=== PATIENT | female | born 1970 | race Caucasian/White ===

== ENCOUNTER 2016-09-28 10:06 | Emergency (ER) | payer MEDICAID, OTHER ==
[2016-09-28 10:06] VITALS: BMI 29.9
[2016-09-28 10:27] VITALS: BP 149/86; PULSE 109; RESP 18; TEMP 98.5; O2SAT 99
[2016-09-28 12:06] LABS: RBC URINE 18 /hpf (0-3); URINE BACTERIA FEW (<OCC); URINE BILIRUBIN NEGATIVE (NEGATIVE); URINE BLOOD 2+ (NEGATIVE); URINE COLOR Amber (YELLOW); URINE GLUCOSE (UA) NORMAL (Normal); URINE KETONE NEGATIVE (NEGATIVE); URINE LEUKOCYTE ESTERASE 3+ Leu/uL (Negative); URINE PROTEIN 2+ mg/dL (NEGATIVE); WBC CLUMPS FEW /hpf; WBC URINE 2147 /hpf (0-5)
[2016-09-28] MEDS ORDERED: Tmp-Smz 800 mg-160 mg DS Tab PO STA (12:20)
--- NOTE | 2016-09-28 12:24 | C.PDOC ---
History Of Present Illness 45 y/o female presents to the ED for evaluation of dysuria which began around 1 week ago. Patient also notes she had a fever yesterday and has been experiencing back pain for 2 days. Patient has PMHx of UTI, no prior history of pyelonephritis. She denies abdominal pain, nausea, vomiting, hematuria. Time Seen by Provider: 09/28/16 11:01 Chief Complaint (Nursing): Female Genitourinary History Per: Patient History/Exam Limitations: no limitations Onset/Duration Of Symptoms: Other (1 week ) Current Symptoms Are (Timing): Still Present Quality Of Discomfort: "Pain" Associated Symptoms: Fever, Back Pain, Urinary Symptoms (+dysuria ). denies: Chills, Nausea, Vomiting Additional History Per: Patient Past Medical History Reviewed: Historical Data, Nursing Documentation, Vital Signs Vital Signs: Last Vital Signs Temp 98.5 F 09/28/16 10:23 Pulse 109 H 09/28/16 10:23 Resp 18 09/28/16 12:40 BP 149/86 09/28/16 10:23 Pulse Ox 99 09/28/16 13:37 - Medical History PMH: No Chronic Diseases Surgical History: No Surg Hx - [facility] Procedures INJECT/INFUSE ELECTROLYT (08/28/14) INJECT/INFUSE NEC (08/28/14) Family History: States: Unknown Family Hx - Social History Hx Alcohol Use: No Hx Substance Use: No - Immunization History Hx Influenza Vaccination: No Review Of Systems Except As Marked, All Systems Reviewed And Found Negative. Constitutional: Positive for: Fever Gastrointestinal: Negative for: Nausea, Vomiting, Abdominal Pain Genitourinary: Positive for: Dysuria. Negative for: Hematuria Musculoskeletal: Positive for: Back Pain Physical Exam - Physical Exam Appears: Non-toxic, No Acute Distress, Other (morbidly obese ) Skin: Normal Color, Warm, Dry Head: Atraumatic, Normacephalic Eye(s): bilateral: Normal Inspection Oral Mucosa: Moist Neck: Supple Chest: Symmetrical, No Deformity, No Tenderness (no pain to percussion of costovertebral angle) Cardiovascular: Rhythm Regular, No Murmur Respiratory: Normal Breath Sounds, No Rales, No Rhonchi, No Wheezing Gastrointestinal/Abdominal: Soft, No Tenderness, No Guarding, No Rebound Back: Normal Inspection Extremity: Normal ROM, Capillary Refill (less than 2 seconds ) Neurological/Psych: Normal Speech, Normal Cognition Gait: Steady ED Course And Treatment - Laboratory Results Lab Interpretation: Abnormal (UA 2100 WBC's) Urine POC: Negative O2 Sat by Pulse Oximetry: 99 (on RA) Pulse Ox Interpretation: Normal Progress Note: motrin, Bactrim (allergy to Keflex) Medical Decision Making Medical Decision Making: UTI, ? early pyelo w fevers last night, no CVA tender, nor fever/tachy today. ok for opt tx Disposition Doctor Will See Patient In The: Office Counseled Patient/Family Regarding: Studies Performed, Diagnosis - Disposition Referrals: Mary Ayala MD [Staff Provider] - Disposition: HOME/ ROUTINE Disposition Time: 12:24 Condition: GOOD Additional Instructions: erlin Bactrim DS (antibiotico) dos veces al missy por 2 semanas (28 tabletas en total) Erlin [place]. Tylenol 1000 mg o' Ibuprofeno 600 mg cada 6 horas rafael necessario para ana laura/ fiebres. Sigue con Dra. Brown Prescriptions: Sulfamethoxazole/Trimethoprim [Bactrim DS 800 mg-160 mg] 1 tab PO BID #27 tab Instructions: Urinary Tract Infection in Women (ED), Acute Pyelonephritis (ED) Print Language: [place] - Clinical Impression Clinical Impression: UTI (urinary tract infection) - Scribe Statement The provider has reviewed the documentation as recorded by the Scribe (Florina Mock) Provider Attestation: All medical record entries made by the Scribe were at my direction and personally dictated by me. I have reviewed the chart and agree that the record accurately reflects my personal performance of the history, physical exam, medical decision making, and the department course for this patient. I have also personally directed, reviewed, and agree with the discharge instructions and disposition.
[2016-09-28] MEDS ORDERED: Tmp-Smz 800 mg-160 mg DS Tab ONE (12:33)
== END 2016-09-28 12:41 | disposition home or self-care (01) ==
LOC: C.ER 10:06
DX: N39.0 Urinary tract infection, site not specified (principal)